=== PATIENT | male | born 1950 | race Caucasian/White ===

== ENCOUNTER 2023-06-06 13:02 | Inpatient (IN) | payer OTHER, MEDICAID ==
[~2023-06-06] VITALS: Ht 185.4 cm; Wt 100.7 kg
[2023-06-06 13:40] VITALS: BP_SYST 157; PULSE 79; RESP 20; TEMP 98.3; O2SAT 98
[2023-06-06 13:54] LABS: BASOPHILS % (AUTO) 0.4 % (0.0-2.0); EOSINOPHILS # (AUTO) 0.1 K/uL (0.0-0.4); EOSINOPHILS % (AUTO) 1.2 % (0.0-4.0); HEMOGLOBIN 14.8 g/dL (14.0-18.0); LYMPHOCYTES % (AUTO) 32.5 % (20.5-51.5); MEAN CORPUSCULAR HEMOGLOBIN 35 pg (27-31); MEAN CORPUSCULAR HGB CONC 34 % (32-36); MEAN CORPUSCULAR VOLUME 105 fL (79.0-98.0); MONOCYTES # (AUTO) 0.4 K/uL (0.0-1.0); MONOCYTES % (AUTO) 6.2 % (1.7-9.3); NEUTROPHILS # (AUTO) 3.6 K/uL (1.8-7.7); NEUTROPHILS % (AUTO) 59.7 % (40.0-70.0); PLATELET COUNT (AUTO) 124 K/uL (130-430); RED BLOOD CELL COUNT(AUTO) 4.19 MIL/uL (4.2-6.2); RED CELL DISTRIBUTION WIDTH 13.4 % (9.0-15.0); WHITE BLOOD COUNT (AUTO) 6.1 K/uL (4.8-10.8)
[2023-06-06 14:16] LABS: INR 1.2 (0.80-1.20); PROTHROMBIN TIME 12.7 SECS (9.5-12.5)
[2023-06-06 14:29] LABS: ANION GAP 10 (5-15); CALCIUM 11.2 mg/dL (8.4-11.0); CARBON DIOXIDE 25 mmol/L (23-29); CHLORIDE 107 mmol/L (98-107); CREATININE 1.02 mg/dL (0.55-1.30); GLUCOSE 252 mg/dL (74-106); POTASSIUM 3.9 mmol/L (3.5-5.1); SODIUM SERUM 142 mmol/L (136-145); UREA NITROGEN, BLOOD 14 mg/dL (8-21)
[2023-06-06 14:36] LABS: ALANINE AMINOTRANSFERASE 57 U/L (12-78); ALBUMIN 3.2 g/dL (3.4-4.8); ASPARTATE AMINOTRANSFERASE 60 U/L (10-37); TOTAL BILIRUBIN 2.5 mg/dL (0.0-1.0); TOTAL PROTEIN, SERUM 7.5 g/dL (6.4-8.3)
[2023-06-06 15:55] LABS: BILIRUBIN,URINE NEGATIVE (NEGATIVE); BLOOD, URINE 2+ (NEGATIVE); COLOR,URINE YELLOW (YELLOW); GLUCOSE,URINE TRACE (NEGATIVE); KETONES,URINE NEGATIVE (NEGATIVE); LEUKOCYTE ESTERASE ,URINE NEGATIVE (NEGATIVE); NITRITE, URINE NEGATIVE (NEGATIVE); PROTEIN URINE NEGATIVE (NEGATIVE); UROBILINOGEN,URINE 0.2 (0.2-1.0)
[2023-06-06 16:07] LABS: CLARITY/URINE HAZY (CLEAR)
[2023-06-06 16:11] LABS: BACTERIA,URINE FEW /HPF (None Seen); MUCUS,URINE 1+ /LPF (None Seen); RBC,URINE 50-80 /HPF (0-3); WBC,URINE 0-3 /HPF (0-3)
[2023-06-06] MEDS ORDERED: PIPERACILLIN/TAZO 4.5 GM in NS 100 ML IV ONE (16:30)
[2023-06-06] MEDS ORDERED: ASPIRIN 81 MG TAB.CHEW PO ONE (17:30)
[2023-06-06] MEDS ORDERED: LACTULOSE 20 GM/30 ML UDC PO ONE (17:30)
[2023-06-06] MEDS ORDERED: FAMO20TA8 PO (20:45)
[2023-06-06] MEDS ORDERED: TAMS0.4C96 PO (20:45)
[2023-06-06] MEDS ORDERED: ACET-73 PO (20:45)
[2023-06-06] MEDS ORDERED: DICL100G60 TP (20:45)
[2023-06-06] MEDS ORDERED: GABAPENTIN (20:45)
[2023-06-06 21:10] VITALS: BP_SYST 147; PULSE 71; RESP 18; TEMP 97.9
[2023-06-07] VITALS (7 sets, daily range): BP systolic 100–149; PULSE 62–74; RESP 16–19; TEMP 97.9–100.5; O2SAT 94–99
[2023-06-07] MEDS ORDERED: LORazepam 2 MG/ML VIAL IVP PRN (09:45)
[2023-06-07] MEDS ORDERED: HYDROcodone/ACETAMIN 10-325 MG TAB PO PRN (09:45)
[2023-06-07] MEDS ORDERED: ACETAMINOPHEN 325 MG TABLET PO PRN ×2 (09:45→10:00)
[2023-06-07] MEDS ORDERED: ONDANSETRON HCL 4 MG/2 ML VIAL IVP PRN (09:45)
[2023-06-07] MEDS ORDERED: HYDROcodone/ACETAMIN 5-325 MG TAB (NORCO/ VICODIN) PO PRN (09:45)
[2023-06-07] MEDS ORDERED: NALOXONE HCL 0.4 MG/ML AMP (NARCAN) IVP PRN ×2 (09:45)
[2023-06-07] MEDS ORDERED: TAMSULOSIN HCL 0.4 MG CAP PO ONE (10:00)
[2023-06-07 10:34] LABS: BASOPHILS % (AUTO) 0.3 % (0.0-2.0); EOSINOPHILS # (AUTO) 0.2 K/uL (0.0-0.4); EOSINOPHILS % (AUTO) 2.4 % (0.0-4.0); HEMOGLOBIN 14.9 g/dL (14.0-18.0); LYMPHOCYTES # (AUTO) 2.9 K/uL (1.0-5.5); LYMPHOCYTES % (AUTO) 37.7 % (20.5-51.5); MEAN CORPUSCULAR HEMOGLOBIN 35 pg (27-31); MEAN CORPUSCULAR HGB CONC 34 % (32-36); MEAN CORPUSCULAR VOLUME 104 fL (79.0-98.0); MONOCYTES # (AUTO) 0.6 K/uL (0.0-1.0); MONOCYTES % (AUTO) 7.4 % (1.7-9.3); NEUTROPHILS % (AUTO) 52.2 % (40.0-70.0); PLATELET COUNT (AUTO) 135 K/uL (130-430); RED BLOOD CELL COUNT(AUTO) 4.22 MIL/uL (4.2-6.2); RED CELL DISTRIBUTION WIDTH 13.3 % (9.0-15.0); WHITE BLOOD COUNT (AUTO) 7.7 K/uL (4.8-10.8)
[2023-06-07] MEDS ORDERED: RIFAXIMIN 550 MG TABLET PO ONE (11:00)
[2023-06-07] MEDS ORDERED: LACTULOSE 20 GM/30 ML UDC PO ONE (11:00)
[2023-06-07 11:02] LABS: ALANINE AMINOTRANSFERASE 59 U/L (12-78); ALBUMIN 3.3 g/dL (3.4-4.8); ANION GAP 8 (5-15); ASPARTATE AMINOTRANSFERASE 69 U/L (10-37); CALCIUM 11.2 mg/dL (8.4-11.0); CARBON DIOXIDE 25 mmol/L (23-29); CHLORIDE 109 mmol/L (98-107); CREATININE 0.97 mg/dL (0.55-1.30); GLUCOSE 151 mg/dL (74-106); POTASSIUM 3.7 mmol/L (3.5-5.1); SODIUM SERUM 142 mmol/L (136-145); TOTAL BILIRUBIN 3.1 mg/dL (0.0-1.0); TOTAL PROTEIN, SERUM 7.6 g/dL (6.4-8.3); UREA NITROGEN, BLOOD 14 mg/dL (8-21)
[2023-06-07] MEDS: NORMAL SALINE 5 ML DISP.SYRIN IVF SCH (14:18)
[2023-06-07] MEDS: RIFAXIMIN 550 MG TABLET PO SCH (20:34)
[2023-06-07] MEDS: LACTULOSE 20 GM/30 ML UDC PO SCH (20:34)
[2023-06-07] MEDS: FAMOTIDINE 20 MG TABLET PO SCH (20:34)
[2023-06-08] MEDS: NORMAL SALINE 5 ML DISP.SYRIN IVF SCH ×4 (00:05→21:00)
[2023-06-08 00:38] VITALS: BP_SYST 93; PULSE 72; RESP 19; TEMP 98.6; O2SAT 94
[2023-06-08 05:05] LABS: BASOPHILS % (AUTO) 0.1 % (0.0-2.0); EOSINOPHILS # (AUTO) 0.3 K/uL (0.0-0.4); EOSINOPHILS % (AUTO) 3.7 % (0.0-4.0); HEMATOCRIT 41.7 % (36-54); LYMPHOCYTES # (AUTO) 3.6 K/uL (1.0-5.5); LYMPHOCYTES % (AUTO) 48.6 % (20.5-51.5); MEAN CORPUSCULAR HEMOGLOBIN 35 pg (27-31); MEAN CORPUSCULAR HGB CONC 34 % (32-36); MEAN CORPUSCULAR VOLUME 105 fL (79.0-98.0); MONOCYTES # (AUTO) 0.5 K/uL (0.0-1.0); MONOCYTES % (AUTO) 6.9 % (1.7-9.3); NEUTROPHILS % (AUTO) 40.7 % (40.0-70.0); PLATELET COUNT (AUTO) 129 K/uL (130-430); RED BLOOD CELL COUNT(AUTO) 3.99 MIL/uL (4.2-6.2); RED CELL DISTRIBUTION WIDTH 12.8 % (9.0-15.0); WHITE BLOOD COUNT (AUTO) 7.5 K/uL (4.8-10.8)
[2023-06-08 05:50] LABS: ALANINE AMINOTRANSFERASE 50 U/L (12-78); ALBUMIN 2.8 g/dL (3.4-4.8); ANION GAP 7 (5-15); ASPARTATE AMINOTRANSFERASE 61 U/L (10-37); CALCIUM 10.7 mg/dL (8.4-11.0); CARBON DIOXIDE 23 mmol/L (23-29); CHLORIDE 105 mmol/L (98-107); CREATININE 0.79 mg/dL (0.55-1.30); GLUCOSE 109 mg/dL (74-106); LIPASE 171 U/L (73-393); PHOSPHORUS 2.9 mg/dL (2.7-4.5); POTASSIUM 3.3 mmol/L (3.5-5.1); SODIUM SERUM 135 mmol/L (136-145); TOTAL BILIRUBIN 1.7 mg/dL (0.0-1.0); TOTAL PROTEIN, SERUM 6.8 g/dL (6.4-8.3); UREA NITROGEN, BLOOD 15 mg/dL (8-21)
[2023-06-08 08:00] VITALS: BP_SYST 119; PULSE 64; RESP 18; TEMP 98.1; O2SAT 96
[2023-06-08] MEDS: TAMSULOSIN HCL 0.4 MG CAP PO SCH (09:08)
[2023-06-08] MEDS: LACTULOSE 20 GM/30 ML UDC PO SCH ×2 (09:08→20:59)
[2023-06-08] MEDS: RIFAXIMIN 550 MG TABLET PO SCH ×2 (09:09→20:59)
[2023-06-08] MEDS: FAMOTIDINE 20 MG TABLET PO SCH ×2 (09:10→21:00)
[2023-06-08] MEDS ORDERED: MAGNESIUM SULFATE 50 ML IV ONE (10:30)
[2023-06-08] MEDS ORDERED: POTASSIUM CHLORIDE 20 MEQ TAB.PRT.SR PO ONE (10:30)
[2023-06-08 12:00] VITALS: BP_SYST 123; PULSE 66; RESP 16; TEMP 98.6; O2SAT 95
[2023-06-08 12:56] VITALS: O2SAT 97
[2023-06-08 16:00] VITALS: BP_SYST 117; PULSE 68; RESP 18; TEMP 98.6; O2SAT 95
[2023-06-08 20:00] VITALS: BP_SYST 111; PULSE 69; RESP 18; TEMP 97.6; O2SAT 96
[2023-06-09 00:32] VITALS: BP_SYST 119; PULSE 65; RESP 17; TEMP 98.9; O2SAT 94
[2023-06-09] MEDS: NORMAL SALINE 5 ML DISP.SYRIN IVF SCH (06:20)
[2023-06-09 07:07] LABS: ANION GAP 6 (5-15); CARBON DIOXIDE 24 mmol/L (23-29); CHLORIDE 106 mmol/L (98-107); CREATININE 0.73 mg/dL (0.55-1.30); GLUCOSE 114 mg/dL (74-106); POTASSIUM 3.4 mmol/L (3.5-5.1); SODIUM SERUM 136 mmol/L (136-145); UREA NITROGEN, BLOOD 12 mg/dL (8-21)
[2023-06-09 07:24] LABS: BASOPHILS % (AUTO) 0.7 % (0.0-2.0); EOSINOPHILS # (AUTO) 0.4 K/uL (0.0-0.4); EOSINOPHILS % (AUTO) 6.6 % (0.0-4.0); HEMATOCRIT 40.8 % (36-54); HEMOGLOBIN 13.7 g/dL (14.0-18.0); LYMPHOCYTES # (AUTO) 2.3 K/uL (1.0-5.5); LYMPHOCYTES % (AUTO) 36.6 % (20.5-51.5); MEAN CORPUSCULAR HEMOGLOBIN 35 pg (27-31); MEAN CORPUSCULAR HGB CONC 34 % (32-36); MEAN CORPUSCULAR VOLUME 104 fL (79.0-98.0); MONOCYTES # (AUTO) 0.5 K/uL (0.0-1.0); MONOCYTES % (AUTO) 7.9 % (1.7-9.3); NEUTROPHILS % (AUTO) 48.2 % (40.0-70.0); PLATELET COUNT (AUTO) 110 K/uL (130-430); RED BLOOD CELL COUNT(AUTO) 3.92 MIL/uL (4.2-6.2); WHITE BLOOD COUNT (AUTO) 6.2 K/uL (4.8-10.8)
[2023-06-09 07:44] LABS: ERYTHROCYTE SEDIMENTATION RATE 7 MM/HR (0-15)
[2023-06-09 08:00] VITALS: BP_SYST 128; PULSE 67; RESP 16; TEMP 98; O2SAT 96; O2SAT 98
[2023-06-09] MEDS: RIFAXIMIN 550 MG TABLET PO SCH (09:48)
[2023-06-09] MEDS: LACTULOSE 20 GM/30 ML UDC PO SCH (09:49)
[2023-06-09] MEDS: TAMSULOSIN HCL 0.4 MG CAP PO SCH (09:50)
[2023-06-09] MEDS: FAMOTIDINE 20 MG TABLET PO SCH (09:50)
[2023-06-09] MEDS ORDERED: LACT10SO7 PO ×2 (10:23)
[2023-06-09] MEDS ORDERED: RIFA550T5 PO (10:23)
[2023-06-09 12:43] VITALS: BP_SYST 117; PULSE 78; RESP 16; TEMP 98; O2SAT 97
[2023-06-09 16:05] VITALS: BP_SYST 117; PULSE 68; RESP 16; TEMP 98; O2SAT 96
[2023-06-13 20:06] LABS: MYCOPLASMA PNEUMONIAE IgM <770 U/mL (0-769)
[2023-06-14 17:06] LABS: ASPERGILLUS FLAVUS Negative (Neg:<1:1); ASPERGILLUS FUMIGATUS Negative (Neg:<1:1)
== END 2023-06-09 18:13 | disposition home health service (06) | DRG 441 ==
LOC: SED 13:02 → STU 17:38 → SMU 06-08 16:18
PROVIDERS: ADMIT Preventive Medicine Preventive Medicine/Occupational Environmental Medicine; ATTEND Preventive Medicine Preventive Medicine/Occupational Environmental Medicine
DX: K76.82 Hepatic encephalopathy (principal); J18.9 Pneumonia, unspecified organism; G45.9 Transient cerebral ischemic attack, unspecified; E87.0 Hyperosmolality and hypernatremia; G83.4 Cauda equina syndrome; E87.20 Acidosis, unspecified; N39.0 Urinary tract infection, site not specified; D69.6 Thrombocytopenia, unspecified; E83.42 Hypomagnesemia; E88.09 Other disorders of plasma-protein metabolism, not elsewhere classified; K74.60 Unspecified cirrhosis of liver; I25.10 Atherosclerotic heart disease of native coronary artery without angina pectoris; E87.6 Hypokalemia; E83.52 Hypercalcemia; K80.20 Calculus of gallbladder without cholecystitis without obstruction; N40.0 Benign prostatic hyperplasia without lower urinary tract symptoms; M48.061 Spinal stenosis, lumbar region without neurogenic claudication; Z80.9 Family history of malignant neoplasm, unspecified; Z87.891 Personal history of nicotine dependence; Z90.79 Acquired absence of other genital organ(s); Z95.1 Presence of aortocoronary bypass graft; Z95.2 Presence of prosthetic heart valve
CPT/HCPCS: 36415; 70450-TC; 71045; 76376; 76700-TC; 80048; 80053; 81000; 82105; 82140; 82962; 83605; 83690; 83735; 84100; 84484; 85025; 85610-TC; 85651-TC; 85730-TC; 86606; 86738; 87040; 87086; 93005; 93306; 97110-GP; 97116-GP; 97530-GP; 99285; G0378; J0696; J2543; J3475; J7060

== ENCOUNTER 2023-07-15 13:59 | Inpatient (IN) | payer OTHER, MEDICAID ==
[~2023-07-15] VITALS: Ht 182.9 cm; Wt 105.2 kg
[~2023-07-15 13:59] MED LIST: ACET-73 PO; DICL100G60 TP; FAMO20TA8 PO; GABAPENTIN; LACT10SO7 PO; RIFA550T5 PO; TAMS0.4C96 PO
[2023-07-15 14:10] VITALS: BP_SYST 142; PULSE 78; RESP 19; TEMP 97.5; O2SAT 97
[2023-07-15 15:03] LABS: BASOPHILS % (AUTO) 0.3 % (0.0-2.0); EOSINOPHILS # (AUTO) 0.1 K/uL (0.0-0.4); EOSINOPHILS % (AUTO) 0.7 % (0.0-4.0); HEMATOCRIT 43.7 % (36-54); HEMOGLOBIN 14.7 g/dL (14.0-18.0); LYMPHOCYTES # (AUTO) 1.9 K/uL (1.0-5.5); LYMPHOCYTES % (AUTO) 23.4 % (20.5-51.5); MEAN CORPUSCULAR HEMOGLOBIN 35 pg (27-31); MEAN CORPUSCULAR HGB CONC 34 % (32-36); MEAN CORPUSCULAR VOLUME 105 fL (79.0-98.0); MONOCYTES # (AUTO) 0.5 K/uL (0.0-1.0); MONOCYTES % (AUTO) 6.3 % (1.7-9.3); NEUTROPHILS # (AUTO) 5.7 K/uL (1.8-7.7); NEUTROPHILS % (AUTO) 69.3 % (40.0-70.0); PLATELET COUNT (AUTO) 135 K/uL (130-430); RED BLOOD CELL COUNT(AUTO) 4.18 MIL/uL (4.2-6.2); RED CELL DISTRIBUTION WIDTH 13.5 % (9.0-15.0); WHITE BLOOD COUNT (AUTO) 8.2 K/uL (4.8-10.8)
[2023-07-15 15:16] LABS: ANION GAP 8 (5-15); CALCIUM 11.4 mg/dL (8.4-11.0); CARBON DIOXIDE 24 mmol/L (23-29); CHLORIDE 106 mmol/L (98-107); CREATININE 0.96 mg/dL (0.55-1.30); GLUCOSE 147 mg/dL (74-106); POTASSIUM 3.9 mmol/L (3.5-5.1); SODIUM SERUM 138 mmol/L (136-145); UREA NITROGEN, BLOOD 13 mg/dL (8-21)
[2023-07-15 15:19] LABS: INR 1.3 (0.80-1.20); PROTHROMBIN TIME 12.9 SECS (9.5-12.5)
[2023-07-15 15:34] LABS: ALANINE AMINOTRANSFERASE 58 U/L (12-78); ALBUMIN 3.3 g/dL (3.4-4.8); ALCOHOL, BLOOD 3 mg/dL (<10); ASPARTATE AMINOTRANSFERASE 63 U/L (10-37); TOTAL BILIRUBIN 2.2 mg/dL (0.0-1.0); TOTAL PROTEIN, SERUM 7.7 g/dL (6.4-8.3)
[2023-07-15 15:36] LABS: ACETAMINOPHEN < 1 ug/mL (1-30); SALICYLATE < 1 mg/dL (3-30)
[2023-07-15 15:44] LABS: ACETONE, SERUM NEGATIVE (NEGATIVE)
[2023-07-15] MEDS ORDERED: ASPIRIN 81 MG TAB.CHEW PO ONE (17:00)
[2023-07-15 18:10] LABS: BILIRUBIN,URINE NEGATIVE (NEGATIVE); BLOOD, URINE 2+ (NEGATIVE); COLOR,URINE YELLOW (YELLOW); GLUCOSE,URINE NEGATIVE (NEGATIVE); KETONES,URINE NEGATIVE (NEGATIVE); LEUKOCYTE ESTERASE ,URINE NEGATIVE (NEGATIVE); NITRITE, URINE NEGATIVE (NEGATIVE); PH,URINE 6.5 (5.0-8.0); PROTEIN URINE NEGATIVE (NEGATIVE); UROBILINOGEN,URINE 0.2 (0.2-1.0)
[2023-07-15 18:18] LABS: CLARITY/URINE HAZY (CLEAR)
[2023-07-15 18:21] LABS: BACTERIA,URINE FEW /HPF (None Seen); BARBITURATE, URINE NEGATIVE (NEG <=200); BENZODIAZEPINE, URINE NEGATIVE (NEG <=150); CANNABINOID, URINE NEGATIVE (NEG <=50); COCAINE, URINE NEGATIVE (NEG <=150); METHAMPHETAMINES SCREEN,URINE NEGATIVE (NEG <=500); OPIATE, URINE NEGATIVE (NEG <=100); PHENCYCLIDINE SCREEN,URINE NEGATIVE (NEG <=25); UR TRICYCLIC ANTIDEPRESSANTS NEGATIVE (NEG <=300); URINE AMORPHOUS URATE 2+ /HPF (None Seen); URINE AMPHETAMINE NEGATIVE (NEG <=500); URINE METHADONE NEGATIVE (NEG <=200); URINE OXYCODONE SCREEN NEGATIVE (NEG <=100); URINE PROPOXYPHENE SCREEN NEGATIVE (NEG <=300); WBC,URINE 0-3 /HPF (0-3)
[2023-07-15 18:22] LABS: MUCUS,URINE None Seen /LPF (None Seen)
[2023-07-16] VITALS (9 sets, daily range): BP systolic 118–132; PULSE 60–77; RESP 16–18; TEMP 98.2–98.8; O2SAT 94–99
[2023-07-16] MEDS ORDERED: LACTULOSE 20 GM/30 ML UDC PO ONE (12:00)
[2023-07-16] MEDS ORDERED: SPIRONOLACTONE 25 MG TABLET (ALDACTONE) PO ONE (12:15)
[2023-07-16] MEDS ORDERED: FUROSEMIDE 20 MG TABLET PO ONE (12:15)
[2023-07-16] MEDS ORDERED: RIFAXIMIN 550 MG TABLET PO ONE (12:15)
[2023-07-16] MEDS ORDERED: ASPIRIN 81 MG TABLET(ECOTRIN) PO ONE (12:15)
[2023-07-16] MEDS ORDERED: HYDROcodone/ACETAMIN 5-325 MG TAB (NORCO/ VICODIN) PO PRN ×2 (16:45)
[2023-07-16] MEDS ORDERED: ACETAMINOPHEN 325 MG TABLET PO PRN ×3 (16:45)
[2023-07-16] MEDS ORDERED: ONDANSETRON HCL 4 MG/2 ML VIAL IVP PRN (16:45)
[2023-07-16] MEDS ORDERED: NALOXONE HCL 0.4 MG/ML AMP (NARCAN) IVP PRN ×2 (16:45)
[2023-07-16] MEDS ORDERED: LORazepam 2 MG/ML VIAL IVP PRN (16:45)
[2023-07-16] MEDS: LACTULOSE 20 GM/30 ML UDC PO SCH (18:17)
[2023-07-16] MEDS: RIFAXIMIN 550 MG TABLET PO SCH (20:29)
[2023-07-16] MEDS: FAMOTIDINE 20 MG TABLET PO SCH (20:29)
[2023-07-16] MEDS ORDERED: RIFAXIMIN 550 MG TABLET PO SCH (21:00)
[2023-07-16] MEDS ORDERED: NON-FORMULARY MEDICATION (Lactulose 20 GM) PO SCH (21:00)
[2023-07-17 01:00] VITALS: BP_SYST 129; PULSE 66; RESP 18; TEMP 98.9; O2SAT 95
[2023-07-17] MEDS: NORMAL SALINE 5 ML DISP.SYRIN IVF SCH ×3 (03:25→15:29)
[2023-07-17] MEDS: LACTULOSE 20 GM/30 ML UDC PO SCH ×2 (05:17→12:00)
[2023-07-17 07:22] LABS: BASOPHILS % (AUTO) 0.7 % (0.0-2.0); EOSINOPHILS # (AUTO) 0.3 K/uL (0.0-0.4); EOSINOPHILS % (AUTO) 4.8 % (0.0-4.0); HEMATOCRIT 42.1 % (36-54); HEMOGLOBIN 14.1 g/dL (14.0-18.0); LYMPHOCYTES # (AUTO) 2.7 K/uL (1.0-5.5); LYMPHOCYTES % (AUTO) 43.9 % (20.5-51.5); MEAN CORPUSCULAR HEMOGLOBIN 35 pg (27-31); MEAN CORPUSCULAR HGB CONC 33 % (32-36); MEAN CORPUSCULAR VOLUME 104 fL (79.0-98.0); MONOCYTES # (AUTO) 0.5 K/uL (0.0-1.0); MONOCYTES % (AUTO) 8.6 % (1.7-9.3); NEUTROPHILS # (AUTO) 2.5 K/uL (1.8-7.7); PLATELET COUNT (AUTO) 123 K/uL (130-430); RED BLOOD CELL COUNT(AUTO) 4.05 MIL/uL (4.2-6.2); WHITE BLOOD COUNT (AUTO) 6.1 K/uL (4.8-10.8)
[2023-07-17 08:30] VITALS: BP_SYST 122; PULSE 68; RESP 17; TEMP 97.9; O2SAT 97
[2023-07-17] MEDS: RIFAXIMIN 550 MG TABLET PO SCH (08:48)
[2023-07-17] MEDS: FAMOTIDINE 20 MG TABLET PO SCH (08:48)
[2023-07-17] MEDS ORDERED: TAMSULOSIN HCL 0.4 MG CAP PO SCH (09:00)
[2023-07-17] MEDS ORDERED: FUROSEMIDE 20 MG TABLET PO SCH (09:00)
[2023-07-17] MEDS ORDERED: SPIRONOLACTONE 25 MG TABLET (ALDACTONE) PO SCH (09:00)
[2023-07-17] MEDS ORDERED: ASPIRIN 81 MG TABLET(ECOTRIN) PO SCH (09:00)
[2023-07-17 09:16] LABS: ANION GAP 11 (5-15); CALCIUM 10.8 mg/dL (8.4-11.0); CARBON DIOXIDE 23 mmol/L (23-29); CHLORIDE 107 mmol/L (98-107); CREATININE 0.78 mg/dL (0.55-1.30); GLUCOSE 112 mg/dL (74-106); POTASSIUM 3.4 mmol/L (3.5-5.1); SODIUM SERUM 141 mmol/L (136-145); UREA NITROGEN, BLOOD 12 mg/dL (8-21)
[2023-07-17 11:14] VITALS: BP_SYST 141; PULSE 61; RESP 16; TEMP 99.1; O2SAT 100
[2023-07-17 15:12] VITALS: BP_SYST 101; PULSE 69; RESP 16; TEMP 97.7; O2SAT 95
[2023-07-17] MEDS ORDERED: ASPI-1393 PO (15:26)
[2023-07-17] MEDS ORDERED: SPIR25TA PO (15:26)
[2023-07-17] MEDS ORDERED: FURO-150 PO (15:26)
[2023-07-17] MEDS ORDERED: LACT10SO7 PO (15:26)
[2023-07-17 15:59] LABS: ALBUMIN 2.9 g/dL (3.4-4.8); BILIRUBIN,DIRECT 0.5 mg/dL (0.0-0.3); TOTAL BILIRUBIN 1.9 mg/dL (0.0-1.0); TOTAL PROTEIN, SERUM 6.6 g/dL (6.4-8.3)
[2023-07-17 16:10] VITALS: BP_SYST 122; PULSE 68; RESP 17; TEMP 97.9; O2SAT 97
== END 2023-07-17 16:58 | disposition home or self-care (01) | DRG 442 ==
LOC: SED 13:59 → STU 17:19 → SMU 07-16 16:54
PROVIDERS: ADMIT Preventive Medicine Preventive Medicine/Occupational Environmental Medicine; ATTEND Preventive Medicine Preventive Medicine/Occupational Environmental Medicine
DX: K76.82 Hepatic encephalopathy (principal); E72.20 Disorder of urea cycle metabolism, unspecified; G45.9 Transient cerebral ischemic attack, unspecified; N40.0 Benign prostatic hyperplasia without lower urinary tract symptoms; G62.9 Polyneuropathy, unspecified; K74.60 Unspecified cirrhosis of liver; I07.1 Rheumatic tricuspid insufficiency; D69.6 Thrombocytopenia, unspecified; K21.9 Gastro-esophageal reflux disease without esophagitis; S46.009A Unspecified injury of muscle(s) and tendon(s) of the rotator cuff of unspecified shoulder, initial encounter; X58.XXXA Exposure to other specified factors, initial encounter; Y93.89 Activity, other specified; Y92.89 Other specified places as the place of occurrence of the external cause; Y99.8 Other external cause status; Z95.3 Presence of xenogenic heart valve; Z79.899 Other long term (current) drug therapy
CPT/HCPCS: 36415; 70450-TC; 71045; 76376; 76705; 80048; 80053; 80076; 80307; 81000; 81001; 81015; 82009; 82140; 83605; 84484; 85025; 85610-TC; 85730-TC; 93005; 95816; 99285; G0378; G0480; G0481; G0482